=== PATIENT | male | born 2000 | race Caucasian/White ===

== ENCOUNTER 2021-05-03 02:45 | Emergency (ER) | payer OTHER, SELFPAY ==
[2021-05-03 02:52] VITALS: BP 153/75; PULSE 86; RESP 15; TEMP 36.9; O2SAT 100
--- NOTE | 2021-05-03 03:40 | ED.PSYCH ---
HPI - Psych General Chief Complaint: Psychiatric Symptoms <Zbigniew Wood MD - Last Filed: 05/03/21 18:59> Stated Complaint: SI <Zbigniew Wood MD - Last Filed: 05/03/21 18:59> Time Seen by Provider: 05/03/21 03:05 <Zbigniew Wood MD - Last Filed: 05/03/21 18:59> Source: patient <Zbigniew Wood MD - Last Filed: 05/03/21 18:59> History of Present Illness HPI Narrative: Patient presents with suicidal ideation. 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 Ports he is primarily just been planning. Last week he did set out a bunch of pills talk himself out of killing himself. More recently he has had thoughts of hanging himself. Denies prior psychiatric admission. Does report a history of depression was on Escitalopram but could not tolerate the medication so he was weaned off as it is plan to follow-up with his primary care doctor next week for further evaluation however given the increasing nature of his symptoms he did not think it would be safe to wait until next week. <Zbigniew Wood MD - Last Filed: 05/03/21 18:59> Related Data Home Medications: Home Medications Medication Instructions Recorded Confirmed No Home Medications 05/03/21 05/03/21 <Zbigniew Wood MD - Last Filed: 05/03/21 18:59> Allergies/Adverse Reactions: Allergies Allergy/AdvReac Type Severity Reaction Status Date / Time nickel Allergy Unknown Verified 05/03/21 04:45 <Zbigniew Wood MD - Last Filed: 05/03/21 18:59> Review of Systems Review of Systems: CONSTITUTIONAL: Denies fever, chills, or sweats. EYES: Denies visual changes, redness, or discharge. ENT: Denies rhinorrhea, congestion, sore throat, or otalgia. CARDIOVASCULAR: Denies chest pain, palpitations, or edema. RESPIRATORY: Denies cough or dyspnea. GASTROINTESTINAL: Denies abdominal pain, nausea, vomiting, or diarrhea. GENITOURINARY: Denies dysuria or hematuria. SKIN: Denies rash or itching. MUSCULOSKELETAL: Denies back pain, joint pain, or myalgia. NEUROLOGIC: Denies headache, numbness, dizziness, or weakness. PSYCHIATRIC: Reports depression <Zbigniew Wood MD - Last Filed: 05/03/21 18:59> All systems reviewed & are unremarkable except as noted in HPI and below <Zbigniew Wood MD - Last Filed: 05/03/21 18:59> PMFSH Past Medical History Medical History: Medical History (Updated 05/03/21 @ 07:14 by Zbigniew Wood MD) Depression <Zbigniew Wood MD - Last Filed: 05/03/21 18:59> Social History Social History: Social History (Updated 05/03/21 @ 03:42 by Zbigniew Wood MD) Substance use type: does not use Living arrangements: with family <Zbigniew Wood MD - Last Filed: 05/03/21 18:59> Exam Narrative: GENERAL: Well-appearing, well-nourished, and in no acute distress. HEAD: Normocephalic, atraumatic. EYES: PERRLA and EOMI. ENT: Nares clear, no rhinorrhea or epistaxis. Mucous membranes moist. NECK: Supple. No masses. No JVD CHEST: Clear to auscultation. No respiratory distress. No wheezes rales or rhonchi HEART: Regular rate and rhythm. No murmur heard. Normal peripheral pulses. ABDOMEN: Soft, nontender, nondistended, normal active bowel sounds. EXTREMITIES: Normal range of motion. No edema. SKIN: Warm, dry, no rash. NEURO: No focal deficits. Alert and oriented x3. PSYCH: Normal mood and affect. <Zbigniew Wood MD - Last Filed: 05/03/21 18:59> Course Reevaluation(s) Reevaluation #1: Patient is medically stable and appropriate for crisis evaluation <Zbigniew Wood MD - Last Filed: 05/03/21 18:59> Currently patient is asymptomatic, laying down in bed, comfortable. <Monae Hicks MD - Last Filed: 05/03/21 13:31> Date: 05/03/21 <Zbigniew Wood MD -
[2021-05-03 03:42] LABS: Acetaminophen < 10 ug/mL (10-30); Ethanol < 10 mg/dL (<10); Salicylate < 1.0 mg/dL (2-20)
[2021-05-03 03:48] LABS: Alanine Aminotransferase 32 U/L (4-50); Albumin Level 5.1 g/dL (3.5-5.1); Alkaline Phosphatase 118 U/L (38-126); Anion Gap 13 mmol/L (8-16); Aspartate Amino Transferase 33 U/L (17-59); Bilirubin,Total 0.4 mg/dL (0.2-1.3); Blood Urea Nitrogen 10 mg/dL (9-20); Calcium 9.8 mg/dL (8.4-10.2); Carbon Dioxide 28 mmol/L (22-30); Chloride 101 mmol/L (98-107); Estimated CRCL calculation 121 ml/min; Estimated Glomerular Filt Rate > 60; Glucose 100 mg/dL (65-110); Sodium 142 mmol/L (137-145)
[2021-05-03 03:49] LABS: Basophils Absolute Auto 0.1 K/mm3 (0.0-0.1); Basophils Percent Auto 0.5 % (0.2-1.2); Eosinophils Absolute Auto 0.2 K/mm3 (0-0.3); Hematocrit 47.6 % (42.0-52.0); Hemoglobin 15.5 g/dL (14.0-18.0); Immature Granulocyte Absolute 0.02 K/mm3 (0.00-0.031); Immature Granulocyte Percent A 0.2 % (0-0.5); Lymphocytes Absolute Auto 3.53 K/mm3 (0.9-3.2); Lymphocytes Percent Auto 37.9 % (18.3-44.2); Mean Corpuscular HGB Conc 32.6 g/dl (32-36); Mean Corpuscular Hemoglobin 28.7 pg (26-34); Mean Platelet Volume 12.1 fl (7.4-10.4); Monocytes Absolute Auto 0.7 K/mm3 (0.1-0.6); Monocytes Percent Auto 7.6 % (2.6-8.5); Neutrophils Absolute Auto 4.8 K/mm3 (1.3-6.7); Neutrophils Percent Auto 51.8 % (45.5-73.1); Platelet Count Result 321 k/mm3 (150-375); Red Blood Count 5.41 M/mm3 (4.6-6.20); Red Cell Distribution Width 12.3 % (11.5-14.5); White Blood Count 9.3 K/mm3 (4.5-10.0)
[2021-05-03 03:57] LABS: Amphetamine Screen Urine Negative (Negative); Barbiturate Screen Urine Negative (Negative); Benzodiazepines Screen Urine Negative (Negative); Cannabinoid Screen Urine Negative (Negative); Cocaine Screen Urine Negative (Negative); Methadone Screen Urine Negative (Negative); Opiate Screen Urine Negative (Negative); Phencyclidine Screen Urine Negative (Negative)
[2021-05-03 04:06] LABS: Add Urine Microscopic? NO; Appearance Urine Clear (Clear); Bilirubin Urine Negative (Negative); Blood Urine Negative (Negative); Color Urine Straw (Yellow); Glucose Urine UA Negative (Negative); Ketones Urine Negative (Negative); Leukocyte Esterase Ur Negative LEU/UL (Negative); Nitrate Urine Negative (Negative); Protein Urine Negative (Negative); Specific Grav Ur 1.011 (1.001-1.035); Urobilinogen Urine Negative mg/dL (<2.0)
[2021-05-03 04:32] LABS: SARS-CoV-2 RNA PCR Negative
[2021-05-03 06:00] VITALS: BP 117/72; PULSE 68; RESP 16; O2SAT 99
[2021-05-03 08:21] VITALS: BP 135/94; PULSE 94; RESP 18; O2SAT 95
--- NOTE | 2021-05-03 08:25 | PC.NURSE ---
Pt offered breakfast. Pt states he is not hungry at this time. Pt offered something to drink. water provided. Pt has no other needs. Vital Signs taken. lactation coordinator speaking with ERP at this time. Sitter at bedside.
--- NOTE | 2021-05-03 08:35 | PC.NURSE ---
Once revaluating pt he states he has nto had any more SI thoughts. Sitter removed from bedside due to low score. wheel worker went over safety plan with pt.
[2021-05-03 09:57] LABS: SARS-CoV-2 RNA PCR Negative
--- NOTE | 2021-05-03 10:51 | PC.NURSE ---
Pt speaking with Maria G from [employer].
--- NOTE | 2021-05-03 11:05 | PC.NURSE ---
called and ordered pt lunch tray.
--- NOTE | 2021-05-03 11:24 | PC.NURSE ---
Lunch tray ordered for pt. SUSANA Cueto spoke with pt and mother and updated them.
[2021-05-03 11:53] VITALS: BP 109/56; PULSE 85; RESP 16; TEMP 36.6; O2SAT 96
--- NOTE | 2021-05-03 13:47 | PC.NURSE ---
[facility] called for transport. ETA [id number]
[2021-05-03 16:17] VITALS: BP 128/76; PULSE 78; RESP 16; TEMP 36.8; O2SAT 95
--- NOTE | 2021-05-03 18:45 | PC.NURSE ---
Pt transported with belongings that were locked up. Report given to EMS. [facility] called and made aware of pt in transit.
== END 2021-05-03 18:50 | disposition short-term general hospital (02) ==
PROVIDERS: Emergency Medicine; Emergency Provider Emergency Medicine; PCP Family Medicine
DX: R45.851 Suicidal ideations (principal); F32.A Depression, unspecified; Z20.822 Contact with and (suspected) exposure to COVID-19
CPT/HCPCS: 36415; 80053; 80307; 81003; 84443; 85025; 99285; C9803; U0003; U0005